=== PATIENT | female | born 1990 | race Two or more races ===

== ENCOUNTER 2019-04-26 18:31 | Emergency (ER) | payer MEDICAID ==
--- NOTE | 2019-04-26 18:57 | ER Document Report ---
ED Medical Screen (RME) - General Chief Complaint: Vaginal Bleeding Stated Complaint: VAGINAL BLEEDING Time Seen by Provider: 04/26/19 18:47 Primary Care Provider: MARCO A HOLT MD [Primary Care Provider] - Follow up as needed Notes: Patient is a 28-year-old female G3, P2 who presents to the emergency department with a chief complaint of vaginal bleeding at around 11 weeks . Patient states she has had intermittent vaginal spotting for 1 week. She reports over the past week it has been bright red. Patient states this morning she went to use the bathroom and there was a lot of dark red blood in the toilet. Patient states today she has had a lot more bleeding than normal. Patient states she has been 2 other times did not have any bleeding or cramping with her previous pregnancies. Patient denies clots. Patient denies urinary symptoms. Patient reports right lower abdominal pain that is cramping in nature also is having right lower back pain. Patient reports she is currently being [facility] and did have an ultrasound to verify an intrauterine . Patient denies any new vaginal discharge. Patient reports her last menstrual cycle was January 24. TRAVEL OUTSIDE OF THE [place] IN LAST 30 DAYS: No - Related Data Allergies/Adverse Reactions: amoxicillin Allergy (Verified 02/19/12 11:45) Hives Physical Exam - Vital signs Vitals: Temp Pulse Resp BP Pulse Ox 97.9 F 91 18 144/89 H 96 04/26/19 18:40 04/26/19 18:40 04/26/19 18:40 04/26/19 18:40 04/26/19 18:40 - Abdominal Inspection: Normal Distension: No distension Course - Re-evaluation Re-evalutation: 04/26/19 18:56 I have greeted and performed a rapid initial assessment of this patient. A comprehensive ED assessment and evaluation of the patient, analysis of test results and completion of the medical decision making process will be conducted by additional ED providers. - Vital Signs Vital signs: Temp Pulse Resp BP Pulse Ox 97.9 F 91 18 144/89 H 96 04/26/19 18:40 04/26/19 18:40 04/26/19 18:40 04/26/19 18:40 04/26/19 18:40 Doctor's Discharge - Discharge Referrals: MARCO A HOLT MD [Primary Care Provider] - Follow up as needed
--- NOTE | 2019-04-26 19:21 | ER Document Report ---
ED General - General Chief Complaint: Vaginal Bleeding Stated Complaint: VAGINAL BLEEDING Time Seen by Provider: 04/26/19 18:47 Primary Care Provider: MARCO A HOLT MD [ACTIVE STAFF] - Follow up in 1 week Notes: Patient is a G3, P2 28-year-old female presents emergency department with a chief complaint of vaginal bleeding. She states that last week she started to have some spotting and cramping and today she noticed a large amount of blood when she wiped when she was going to the bathroom. Patient states that she felt nauseated and she vomited earlier today. Patient states that she has not had this before. She denies any past medical history and does not take any medication. She is currently about 11 weeks and her last menstrual cycle was January 24. Her care has started with the health department and she is waiting on referral for [facility]. TRAVEL OUTSIDE OF THE [place] IN LAST 30 DAYS: No - Related Data Allergies/Adverse Reactions: amoxicillin Allergy (Verified 02/19/12 11:45) Hives Past Medical History - Social History Smoking Status: Never Smoker Family History: Reviewed & Not Pertinent Review of Systems - Review of Systems Notes: REVIEW OF SYSTEMS: CONSTITUTIONAL : Denies recent illness. Denies recent unintentional weight loss. Denies fever, chills, or sweats. EENT: Denies eye, ear, throat, or mouth pain, discharge, or symptoms. Denies nasal or sinus congestion. CARDIOVASCULAR: Denies chest pain. RESPIRATORY: Denies shortness of breath, cough, congestion, difficulty breathing, or wheezing. GASTROINTESTINAL: Denies nausea, vomiting, and diarrhea. Denies abdominal pain. Denies constipation. Last BM: GENITOURINARY: Denies difficulty urinating, burning, blood in urine, urgency or frequency. FEMALE GENITOURINARY: See HPI MUSCULOSKELETAL: Denies neck and back pain. Denies joint pain or swelling. SKIN: Denies rash, itchiness, or lesions HEMATOLOGIC : Denies easy bruising or bleeding. LYMPHATIC: Denies swollen, painful, enlarged glands. NEUROLOGICAL: Denies no numbness or tingling denies weakness. Denies headache. Denies altered mental status. Denies alteration in speech. PSYCHIATRIC: Denies stress, anxiety, alteration in sleep patterns, or depression. All other systems reviewed and negative. Physical Exam - Vital signs Vitals: Temp Pulse Resp BP Pulse Ox 97.9 F 91 18 144/89 H 96 04/26/19 18:40 04/26/19 18:40 04/26/19 18:40 04/26/19 18:40 04/26/19 18:40 - Notes Notes: PHYSICAL EXAMINATION: GENERAL: Appears well, healthy, well-nourished, no acute distress. HEAD: Normocephalic, atraumatic. EYES: PERRL, conjunctiva normal, all extraocular movements intact, sclera nonicteric ENT: Moist mucous membranes. NECK: Supple, no noticeable swelling, redness, rash. Normal range of motion. LUNGS: Equal breath sounds bilaterally and clear to auscultation. No wheezes rales or rhonchi. CARDIOVASCULAR: S1-S2, regular rate, regular rhythm. Radial pulses 2+, normal. ABDOMEN: Normoactive bowel sounds. Soft, nontender, no guarding, no rebound tenderness, and no masses palpated. EXTREMITIES: Normal strength and range of motion, no pitting or edema. No cyanosis. NEUROLOGICAL: Moves all extremities upon command. Strength 5/5 in all extremities. PSYCH: Normal mood, normal affect. SKIN: Warm, dry. No rash, lesions, ulcerations noted. Normal skin turgor. FABRIC CUTTER: No discharge noted. No blood noted. Course - Re-evaluation Re-evalutation: 04/26/19 21:22 Patient's exam is unremarkable at this time. Pelvic exam was done with MARCOS Henao at bedside and no bleeding was noted. Labs unremarkable and her quantitative hCG is consistent with a of 12 weeks noted on ultrasound. The patient will follow-up with [facility] in regards to this visit. I have a very low suspicion for any life-threatening etiology at this time. Ectopic and miscarriage was ruled out via ultrasound. Follow-up precautions were given. Verbal discharge instructions were given to the patient. They verbalized understanding. They are stable for discharge. - Vital Signs Vital signs: Temp Pulse Resp BP Pulse Ox 97.7 F 82 16 140/79 H 98 04/26/19 21:55 04/26/19 21:55 04/26/19 21:55 04/26/19 21:55 04/26/19 21:55 - Laboratory Result Diagrams: 04/26/19 20:04 04/26/19 20:04 Laboratory results interpreted by me: 04/26/19 04/26/19 04/26/19 20:04 20:04 20:04 WBC 11.1 H Sodium 135.9 L Beta HCG, Quant 89125.00 H Urine HCG, Qual POSITIVE H Discharge - Discharge Clinical Impression: Vaginal bleeding during Condition: Stable Disposition: HOME, SELF-CARE Additional Instructions: You were seen today in the emergency department for vaginal bleeding. Your ultrasound was normal. Please stay on topic rest and do not have sex or place anything in your vagina. Please follow-up with [facility] in regards to this visit. Referrals: MARCO A HOLT MD [ACTIVE STAFF] - Follow up in 1 week
[2019-04-26] MEDS ORDERED: PYRIDOXINE HCL 50 MG TABLET PO ONE (20:10)
[2019-04-26 20:20] LABS: ABSOLUTE EOSINOPHILS # (AUTO) 0.5 10^3/uL (0.0-0.6); ABSOLUTE LYMPHOCYTES (AUTO) 2.3 10^3/uL (0.5-4.7); ABSOLUTE MONOCYTES (AUTO) 0.5 10^3/uL (0.1-1.4); ABSOLUTE NEUT (AUTO) 7.7 10^3/uL (1.7-8.2); BASOPHILS % (AUTO) 0.2 % (0-2); EOSINOPHILS % (AUTO) 4.6 % (0-6); HEMATOCRIT 37.6 % (36.0-47.0); HEMOGLOBIN 12.8 g/dL (12.0-15.5); LYMPHOCYTES % (AUTO) 21.1 % (13-45); MEAN CORPUSCULAR HEMOGLOBIN 29.5 pg (27.0-33.4); MEAN CORPUSCULAR VOLUME 87 fl (80-97); MONOCYTES % (AUTO) 4.8 % (3-13); PLATELET COUNT 261 10^3/uL (150-450); RED BLOOD COUNT 4.33 10^6/uL (3.72-5.28); RED CELL DISTRIBUTION WIDTH 13.7 % (11.5-14.0); SEGMENTED NEUTROPHILS % (AUTO) 69.3 % (42-78); TOTAL CELLS COUNTED % (AUTO) 100 %; WHITE BLOOD COUNT 11.1 10^3/uL (4.0-10.5)
[2019-04-26 20:42] LABS: ALKALINE PHOSPHATASE 46 U/L (38-126); ANION GAP 10 (5-19); ASPARTATE AMINO TRANSFERASE 16 U/L (14-36); BILIRUBIN,DIRECT 0.2 mg/dL (0.0-0.4); BILIRUBIN,TOTAL 0.4 mg/dL (0.2-1.3); BLOOD UREA NITROGEN 9 mg/dL (7-20); CALCIUM 10.2 mg/dL (8.4-10.2); CARBON DIOXIDE 24 mmol/L (22-30); CHLORIDE 102 mmol/L (98-107); GLUCOSE 91 mg/dL (75-110); POTASSIUM 4.1 mmol/L (3.6-5.0); TOTAL PROTEIN 7.3 g/dL (6.3-8.2)
--- NOTE | 2019-04-26 21:11 | RADIOLOGY REPORT (SQ) ---
US PELVIS EXAM DATE: 04/26/2019 6:54 PM CDT HISTORY: Pelvic pain. COMPARISON: None. TECHNIQUE: Grayscale, color Doppler, and spectral Doppler ultrasound images of the pelvis were obtained. FINDINGS: There is an intrauterine gestational sac without a yolk sac but with a pole visualized. The crown-rump length measures 5.35 cm, corresponding to 12 weeks 0 days. The heart rate is 185 bpm. The ovaries are not visualized. The cervix measures 3 cm in length and is closed. IMPRESSION: Single live IUP with estimated gestational age 12 weeks 0 days.
[2019-04-26 21:56] VITALS: BP 140/79
== END 2019-04-26 21:56 | disposition home or self-care (01) ==
LOC: ER 18:31
DX: O20.9 Hemorrhage in early pregnancy, unspecified (principal); O21.9 Vomiting of pregnancy, unspecified; Z3A.12 12 weeks gestation of pregnancy; Z88.0 Allergy status to penicillin
CPT/HCPCS: 86900; 86901; 36415; 84702; 85025; 81025; 80053; 76817; 93976; J3490; 99284